=== PATIENT | female | born 1960 | race African-American/Black ===

== ENCOUNTER 2016-12-06 06:53 | Emergency (ER) | payer BC, MEDICAID ==
[~2016-12-06] VITALS: Ht 160 cm; Wt 81.0 kg
[2016-12-06] MEDS ORDERED: KETOROLAC 60MG/2ML VIAL IM ONE (07:45)
[2016-12-06] MEDS ORDERED: ACETAMINOPHEN 500MG TABLET PO ONE (07:45)
[2016-12-06 10:23] LABS: BASOPHILS % 0.6 % (0.0-2.0); EOSINOPHILS % 2.5 % (0.0-5.0); HEMATOCRIT. 37.5 % (36.0-48.0); HEMOGLOBIN. 12.7 g/dL (12.0-16.0); LYMPHOCYTES % 24.5 % (20.0-50.0); MEAN CORPUSCULAR HEMOGLOBIN 28.3 pg (28.0-32.0); MEAN CORPUSCULAR VOLUME 83.7 fL (81.0-99.0); MEAN PLATELET VOLUME 8.7 fl (7.4-10.4); MONOCYTES % 4.8 % (2.0-8.0); NEUTROPHILS % 67.6 % (40.0-76.0); PLATELET 293 x1000/uL (130-400); RED BLOOD CELL COUNT 4.48 mill/uL (4.2-5.4); RED CELL DISTRIBUTION WIDTH 15.2 % (11.6-14.6)
[2016-12-06 10:32] LABS: PARTIAL THROMBOPLASTIN TIME 26.5 sec (23.4-31.0); PROTHROMBIN TIME 10.7 sec (9.4-11.6)
[2016-12-06 10:34] LABS: CARBON DIOXIDE 28 mEq/L (21-32); CHLORIDE 101 mEq/L (98-107)
[2016-12-06] MEDS ORDERED: LEVETIRACETAM 500MG PREMIX 100 ML IV ONE (11:00)
[2016-12-06] MEDS ORDERED: DEXAMETHASONE 10 MG/ML VIAL IV ONE (11:00)
[2016-12-06] MEDS ORDERED: ONDANSETRON HCL 4MG/2ML VIAL IV ONE (12:00)
[2016-12-06] MEDS ORDERED: IOHEXOL-300 100 ML BOTTLE ONE (15:07)
[2016-12-06 15:23] VITALS: BP 130/80
== END 2016-12-06 15:52 | disposition short-term general hospital (02) ==
LOC: ER 06:53
DX: S06.6X0A Traumatic subarachnoid hemorrhage without loss of consciousness, initial encounter (principal); I10 Essential (primary) hypertension; E11.9 Type 2 diabetes mellitus without complications; S06.5X0A Traumatic subdural hemorrhage without loss of consciousness, initial encounter; V46.4XXA Person boarding or alighting a car injured in collision with other nonmotor vehicle, initial encounter; W22.11XA Striking against or struck by driver side automobile airbag, initial encounter; Y93.89 Activity, other specified; Y92.89 Other specified places as the place of occurrence of the external cause; Y99.8 Other external cause status
CPT/HCPCS: 36415; 70450; 70486; 70551; 71010; 71260; 72125; 73610; 74177; 80053; 82962; 85025; 85610; 85730; 93005; 96365; 96372; 96375; 99285; J1100; J1885; J1953; J2405; Q9967; Z7610